=== PATIENT | female | born 1960 | race Caucasian/White ===

== ENCOUNTER 2024-07-20 14:26 | Emergency (ER) | payer OTHER, SELFPAY ==
[2024-07-20 14:47] VITALS: BP 145/85; PULSE 135; RESP 20; TEMP 37; O2SAT 99
--- NOTE | 2024-07-20 14:50 | ED.SKABFB ---
HPI - Skin/Abscess/Foreign Bdy General Chief complaint: Skin/Abscess/Foreign Body Stated complaint: rash,itching Time Seen by Provider: 07/20/24 14:52 Source: patient, RN notes reviewed and old records reviewed Mode of arrival: ambulatory Limitations: no limitations History of Present Illness HPI narrative: Patient presents with complaints of extensive rash that began on left arm over 1 week ago after cutting the grass. She reports that rash is extremely itchy, has been spreading. She has never had a rash like this in the past. She has intermittently been taking some Benadryl for her symptoms. Has not been taking anything else. Elevated pulse is noted on arrival. She reports that she had a cardiac event in January, has been tachycardic ever since. She denies any chest pain or shortness of breath. She voices no other concerns or complaints at this time Review of Systems Review of Systems: All systems reviewed & are unremarkable except as noted in HPI and below Constitutional: Constitutional: Reports no additional constitutional complaints ENT: Reports system reviewed and no additional complaints, except as documented Cardiovascular: Cardiovascular: Reports no additional cardiovascular complaints Respiratory: Respiratory: Reports no additional respiratory complaints Gastrointestinal: Gastrointestinal: Reports no additional gastrointestinal complaints Integumentary/Breasts: Skin/Breast: Reports pruritus and Reports rash PMFSH Comments At the time of my signature, I reviewed and agree with the nursing past medical, surgical, social, and family history. There is no relevant family history pertinent to the patient complaint. Exam Const: General: cooperative, no acute distress, alert and awake Orientation/consciousness: oriented to person, oriented to place and oriented to time HENMT: Head: normal to inspection Resp: Effort & Inspection: normal respiratory effort and able to speak in complete sentences Auscultation: clear to auscultation bilaterally, no crackles, no rales, no rhonchi and no wheezes Cardio: Palpation: normal PMI Rate: regular rate and tachycardic (114 on auscultation) Rhythm: regular rhythm Heart sounds: S1 normal heart sound present and S2 normal heart sound present Skin: Rashes: rashes noted (Rash consistent with poison warren noted to left arm, chest, trunk, neck) Neuro: General: oriented to person, oriented to place and oriented to time Cranial nerves: Yes CN's II-XII intact bilaterally Psych: Appearance: grossly normal Thought process: Normal thought process present Insight: Good insight present (Psych) Judgement: Good judgement present (Psych) Course Course Level of Care: Express Care Visit Vital Signs Vital signs: Vital Signs Temperature 98.6 F 07/20/24 14:47 Pulse Rate 135 H 07/20/24 14:47 Respiratory Rate 20 07/20/24 14:47 Blood Pressure 145/85 H 07/20/24 14:47 Pulse Oximetry 99 07/20/24 14:47 Oxygen Delivery Room Air 07/20/24 14:47 Temperature 98.6 F 07/20/24 14:47 Pulse Rate 135 H 07/20/24 14:47 Respiratory Rate 20 07/20/24 14:47 Blood Pressure 145/85 H 07/20/24 14:47 Pulse Oximetry 99 07/20/24 14:47 Oxygen Delivery Room Air 07/20/24 14:47 Reviewed MDM - Skin/Abscess/Foreign Bdy MDM Narrative Medical decision making narrative: Extensive rash that is consistent with poison warren noted, start 15 day prednisone taper, as rash is very extensive. Elevated heart rate noted on arrival, got down to 114 on exam. Patient in no distress, reports that this is typical for her. She is agreeable to follow with primary care provider, emergency department for any new or worse symptoms. Discharge instructions reviewed with patient, as well as provided in writing per nursing staff. The instructions also include specific and strict return/GO TO THE ER as well as f/u information. All questions have been answered, and the patient deny any further questions wi
[2024-07-20 15:26] VITALS: PULSE 114
== END 2024-07-20 15:26 | disposition home or self-care (01) ==
PROVIDERS: Emergency Provider Nurse Practitioner Family
DX: L23.7 Allergic contact dermatitis due to plants, except food (principal); E78.00 Pure hypercholesterolemia, unspecified; I10 Essential (primary) hypertension; I25.2 Old myocardial infarction; Z95.5 Presence of coronary angioplasty implant and graft
CPT/HCPCS: 99203; G0463